=== PATIENT | female | born 1945 | race Caucasian/White ===

== ENCOUNTER 2019-01-06 10:47 | Outpatient (CLI) | payer MEDICARE ==
--- NOTE | 2019-01-06 12:43 | BD ---
Exam: DEXA Bone Density 01/06/19 HISTORY: Postmenopausal. Lumbar Spine: BMD (g/cm2) T-SCORE L1 0.884 -1.0 L2 1.025 +0.0 L3 1.050 -0.3 L4 0.931 -1.2 L1-L4 0.973 -0.7 Left Femoral Neck: 0.612 -2.2 Total Femur: 0.806 -1.1 Impression: 1. Osteopenia of the left femoral neck and normal bone mineral density of the lumbar spine. Ten year fracture risk for major osteoporotic fracture is 21% and hip fracture 9.3%. These fracture p robabilities are calculated for an untreated patient. POS: [facility]
== END 2019-01-06 10:48 | disposition home or self-care (01) ==
LOC: BICMAMMO 10:47
PROVIDERS: ATTEND Family Medicine
DX: M85.89 Other specified disorders of bone density and structure, multiple sites (principal)
CPT/HCPCS: 77080

== ENCOUNTER 2024-01-30 11:43 | Outpatient (CLI) | payer MEDICARE | END 2024-01-30 11:44 | disposition home or self-care (01) | LOC: BICMAMMO 11:43 | PROVIDERS: ATTEND Physician Assistant | DX: Z12.31 Encounter for screening mammogram for malignant neoplasm of breast (principal); Z80.3 Family history of malignant neoplasm of breast | CPT/HCPCS: 77063; 77067 ==

== ENCOUNTER 2025-02-04 10:00 | Outpatient (CLI) | payer MEDICARE | END 2025-02-04 10:01 | disposition home or self-care (01) | LOC: BICMAMMO 10:00 | PROVIDERS: ATTEND Physician Assistant | DX: Z12.31 Encounter for screening mammogram for malignant neoplasm of breast (principal); Z80.3 Family history of malignant neoplasm of breast | CPT/HCPCS: 77063; 77067 ==